=== PATIENT | female | born 1985 | race Caucasian/White ===

== ENCOUNTER 2016-10-13 15:11 | Emergency (ER) | payer MEDICAID, OTHER ==
[~2016-10-13] VITALS: Ht 162.6 cm; Wt 53.0 kg
[2016-10-13 15:21] VITALS: Ht 162.6 cm; Wt 53.0 kg
[2016-10-13] MEDS ORDERED: morphine 4 MG/ML VIAL IV STA (17:18)
[2016-10-13] MEDS ORDERED: SOD CHLORIDE 0.9% 1,000 ML IV STA (17:18)
[2016-10-13] MEDS ORDERED: ONDANSETRON 4 MG INJ IV STA (17:18)
[2016-10-13 18:02] LABS: ADD SCAN DIFF NO; BASOPHIL # 0.1 10^3/ul (0.0-0.1); BASOPHILS % 0.5 % (0.0-2.0); EOSINOPHILS # 0.3 10^3/ul (0.0-0.5); EOSINOPHILS % 3.4 % (0.0-7.0); HEMATOCRIT 40.9 % (37.0-47.0); HEMOGLOBIN 13.7 g/dl (12.0-16.0); LYMPHOCYTES # 3.2 10^3/ul (0.8-2.9); LYMPHOCYTES % 32.4 % (15.0-51.0); MEAN CORPUSCULAR HEMOGLOBIN 31.9 pg (29.0-33.0); MEAN CORPUSCULAR HGB CONC 33.5 g/dl (32.0-37.0); MEAN CORPUSCULAR VOLUME 95.3 fl (82.0-101.0); MONOCYTE # 0.6 10^3/ul (0.3-0.9); MONOCYTES % 5.9 % (0.0-11.0); NEUTROPHIL # 5.6 10^3/ul (1.6-7.5); NEUTROPHILS % 57.5 % (39.0-77.0); PLATELET COUNT 251 10^3/UL (140-415); RED BLOOD COUNT 4.29 10^6/ul (4.20-5.40); RED CELL DISTRIBUTION WIDTH 11.9 % (11.5-14.5); WHITE BLOOD COUNT 9.8 10^3/ul (4.8-10.8)
[2016-10-13 18:05] LABS: ADD UMIC YES; URINE BILIRUBIN (Dip) NEGATIVE (NEGATIVE); URINE BLOOD (Dip) TRACE (NEGATIVE); URINE COLOR LT. YELLOW (YELLOW); URINE GLUCOSE (Dip) NEGATIVE (NEGATIVE); URINE KETONES (Dip) NEGATIVE (NEGATIVE); URINE LEUKOCYTE ESTERASE (Dip) TRACE (NEGATIVE); URINE NITRITE (Dip) NEGATIVE (NEGATIVE); URINE TOTAL PROTEIN (Dip) NEGATIVE (NEGATIVE); URINE UROBILINOGEN (Dip) 0.2 E.U./dL (0.1-1.0)
[2016-10-13 18:10] LABS: ALBUMIN 4.7 g/dl (3.3-4.9)
[2016-10-13 18:11] LABS: POTASSIUM 3.8 mmol/L (3.5-5.1)
[2016-10-13 18:13] LABS: ALBUMIN/GLOBULIN RATIO 1.2; BILIRUBIN,INDIRECT 0.1 mg/dl (0-1.1); BILIRUBIN,TOTAL 0.1 mg/dl (0.2-1.3); CALCIUM 9.4 mg/dl (8.4-10.2); CREATININE 0.59 mg/dl (0.44-1.00); TOTAL PROTEIN 8.6 g/dl (6.1-8.1)
--- NOTE | 2016-10-13 18:31 | RADRPT ---
PROCEDURE: CT Abdomen and Pelvis without contrast. CLINICAL INDICATION: Abdominal pain. History of ovarian cyst. TECHNIQUE: Multiple contiguous axial CT images of the abdomen and pelvis were obtained without the administration of intravenous contrast. Coronal and sagittal reconstructions were also performed. CTDIvol (mGy): 6.52; Total Exam DLP (mGy-cm): 336.69. One or more of the following dose reduction techniques were utilized: - Automated exposure control. - Adjustment of the mA and/or kV according to patient size. - Use of iterative reconstruction technique. COMPARISON: None. FINDINGS: Limited imaging of the lower thorax is unremarkable. The liver and spleen are homogeneous in density. The gallbladder, pancreas and adrenal glands are u nremarkable. The kidneys are symmetric in size. There are no nephroureteral stones. There is no hydronephrosis o r abnormal perinephric inflammation. The abdominal aorta is normal in caliber. There is no periaortic / retroperitoneal lymphadenopathy. The stomach and small and large intestines are unremarkable aside from the presence of a moderate vo lume of formed stool throughout the colon. The appendix is normal. There are no focal inflammatory changes of the mesentery. There is no mesenteric lymphadenopathy. There is no ascites. The bladder, uterus and ovaries/adnexa are unremarkable. There is trace amount of free pelvic fluid. There is no pelvic sidewall or inguinal lymphadenopathy. Skeletal structures are unremarkable. Body wall soft tissues are unremarkable. IMPRESSION: No evidence of abdominopelvic mass, lymphadenopathy or acute inflammatory pathology. RPTAT: HLST .Ericka Burns MD, Date Time Electronically viewed and signed by .Ericka Burns MD, MD on 10/13/2016 18:30 .T/
[2016-10-13 18:33] LABS: BACTERIA,URINE FEW; SQUAMOUS EPITHELIAL CELL,UR MODERATE
--- NOTE | 2016-10-13 18:52 | ERD ---
ER Documentation Chief Complaint Date/Time DATE: 10/13/16 TIME: 18:44 Chief Complaint right lower quad ap/pelvic pain x 3 months HPI Otherwise healthy 31-year-old female presents the emergency department complaining of right lower quadrant abdominal pain which extends into her right lower extremity and radiates down her right leg. Patient states the pain is currently a sharp 8 out of 10 and worse with movement. Patient has attempted to treat her pain with ibuprofen at home with little relief. Patient states the pain began one year ago and was evaluated at that time for appendicitis including CAT scan and workup. Patient was observed for 24 hours and released home without needing surgery. Patient states that since that time she does experience the intermittent right lower quadrant pain throughout the year but today is worse than prior episodes. Patient denies any fever, vaginal bleeding , discharge, new sexual partner, dysuria, hematuria. Patient does know intermittent nausea. Patient denies any trauma to the hip or low back injury or pain. Patient denies any numbness or tingling of the right lower extremity. Patient was seen at another facility on 05 October 2016 and underwent a pelvic exam which was unremarkable. Patient presented the results to me today. ROS All systems reviewed and are negative except as per history of present illness. Medications Home Meds Active Scripts Cephalexin* (Keflex*) 500 Mg Capsule, 500 MG PO QID for 7 Days, CAP Prov:MINH COVINGTON PA-C 10/13/16 Ondansetron (Ondansetron Odt) 4 Mg Tab.rapdis, 4 MG PO Q6H Y for NAUSEA AND/OR VOMITING, #10 TAB Prov:MINH COVINGTON PA-C 10/13/16 Naproxen* (Naprosyn*) 500 Mg Tablet, 500 MG PO BID for 14 Days, TAB Prov:MINH COVINGTON PA-C 10/13/16 Hydrocodone/Acetaminophen ([place] 10-325 Tablet) 1 Each Tablet, 1 EACH PO Q6 for 7 Days, TAB Prov:MINH COVINGTON PA-C 10/13/16 PMhx/Soc Medical and Surgical Hx: pt denies Surgical Hx Hx Miscellaneous Medical Probl: Yes (OVARIAN CYST) Physical Exam Vitals Vital Signs Date Time Temp Pulse Resp B/P Pulse Ox O2 Delivery O2 Flow Rate FiO2 10/13/16 19:12 98.3 69 18 107/58 100 Room Air 10/13/16 15:21 98.5 66 18 115/79 99 Physical Exam Const: Well-developed, well-nourished, in mild distress Head: Atraumatic Eyes: Normal Conjunctiva ENT: Normal External Ears, Nose and Mouth. Neck: Full range of motion..~ No meningismus. Resp: Clear to auscultation bilaterally Cardio: Regular rate and rhythm, no murmurs Abd: Soft, non distended. Normal bowel sounds. Tenderness to palpation along the right lower quadrant. Positive McBurney's tenderness. Negative Low sign, negative rebound tenderness, no peritoneal sign Skin: No petechiae or rashes Back: Tenderness to palpation along the right piriformis region. no midline or flank tenderness. Ext: No tenderness to palpation of the right hip joint patient has full active and passive range of motion at hip and knee joints bilaterally. Pedal pulses equal and bilateral. Sensation intact to distal extremities bilaterally. No cyanosis, or edema Neur: Awake and alert Psych: Normal Mood and Affect Result Diagram: 10/13/167 10/13/161746 Results 24 hrs Laboratory Tests Test 10/13/16 17:30 10/13/16 17:47 Urine Bacteria FEW Urine Bilirubin NEGATIVE Urine Clarity SL.HAZY Urine Color LT. YELLOW Urine Glucose NEGATIVE% Urine Hemoglobin TRACE Urine Ketones NEGATIVE Urine Leukocyte Esterase TRACE Urine Microscopic RBC 5-10/HPF Urine Microscopic WBC 0-2/HPF Urine Nitrite NEGATIVE Urine Specific [facility] 1.015 Urine Squamous Epithelial Cells MODERATE Urine Total Protein NEGATIVE Urine Urobilinogen 0.2 E.U./dL Urine pH 6.0 Alanine Aminotransferase (ALT/SGPT) 21IU/L Albumin 4.7g/dl Albumin/Globulin Ratio 1.20 Alkaline Phosphatase 61IU/L Anion Gap 16 Aspartate Amino Transf (AST/SGOT) 22IU/L Basophils # 0.110^3/ul Basophils % 0.5% Blood Urea Nitrogen 14mg/dl Calcium Level 9.4mg/dl Carbon Dioxide Level 30mmol/L Chloride Level 101mmol/L Creatinine 0.59mg/dl Direct Bilirubin 0.00mg/dl Eosinophils # 0.310^3/ul Eosinophils % 3.4% Globulin 3.90g/dl Glucose Level 95mg/dl Hematocrit 40.9% Hemoglobin 13.7g/dl Indirect Bilirubin 0.1mg/dl Lipase 365U/L Lymphocytes # 3.210^3/ul Lymphocytes % 32.4% Mean Corpuscular Hemoglobin 31.9pg Mean Corpuscular Hemoglobin Concent 33.5g/dl Mean Corpuscular Volume 95.3fl Mean Platelet Volume 10.0fl Monocytes # 0.610^3/ul Monocytes % 5.9% Neutrophils # 5.610^3/ul Neutrophils % 57.5% Nucleated Red Blood Cells # 0.010^3/ul Nucleated Red Blood Cells % 0.0/100WBC Platelet Count 77365^3/UL Potassium Level 3.8mmol/L Red Blood Count 4.2910^6/ul Red Cell Distribution Width 11.9% Sodium Level 143mmol/L Total Bilirubin 0.1mg/dl Total Protein 8.6g/dl White Blood Count 9.810^3/ul Current Medications Medications (Trade) Dose Ordered Sig/Heide Route PRN Reason Start Time Stop Time Status Last Admin Dose Admin Sodium Chloride (NS) 1,000 ml @ 1,000 mls/hr Q1H STAT IV 10/13/16 17:18 10/13/16 18:17 DC 10/13/16 18:33 Morphine Sulfate (morphine) 4 mg ONCE STAT IV 10/13/16 17:18 10/13/16 17:30 DC 10/13/16 18:33 Ondansetron HCl (Zofran Inj) 4 mg ONCE STAT IV 10/13/16 17:18 10/13/16 17:30 DC 10/13/16 18:33 Procedures/MDM 31-year-old otherwise healthy female presents for intermittent right lower quadrant abdominal pain radiating down her right lower extremity intermittently 1 year. Patient denies any trauma, fever, chills or prior abdominal surgeries. Patient recently received pelvic ultrasound which was normal. Vital signs were reviewed. Patient is afebrile. Patient is not hypoxic. Abdominal exam unremarkable aside from right lower quadrant tenderness to palpation. CBC showed no evidence of systemic infection or severe anemia. CMP showed no evidence of electrolyte abnormalities, severe acidosis, alkalosis , renal failure, or liver disease. Lipase showed no evidence of acute pancreatitis. UA showed no evidence of mild infection as leukoesterase was present without hematuria. Urine test was negative. Given these findings, the patients presentation is most consistent with urinary tract infection, abdominal pain of unknown etiology as well as possible sciatica as patient exhibits tenderness near piriformis muscle distribution and has radiation of pain down the right lower extremity. I have a low suspicion for appendicitis, tubo-ovarian abscess, ovarian torsion, small bowel obstruction , diverticulitis, cholecystitis, pancreatitis, ectopic . Patient to return for repeat abdominal exam in 12 hours if right lower quadrant pain continues or worsens. I discussed with the patient the importance of following up with primary care physician for proper management of her ongoing chronic right-sided pain and necessity for referral to specialist. Patient will be provided with a short course of pain medication and antibiotics for UTI. Based on patient's history of present illness and physical examination the decision was made to discharge. The patient was re-evaluated after ED treatment and stabilizing measures, and symptoms have improved. There is no evidence of life threatening injuries or illnesses at this time. On re-examination, patient resting in no distress, stable vital signs, reports feeling better and safe for discharge with outpatient follow up with PMD in 1-2 days. Patient given return precautions. Departure Diagnosis: Primary Impression: Abdominal pain Abdominal location: right lower quadrant Qualified Code: R10.31 - Right lower quadrant abdominal pain Additional Impressions: Nausea Right leg pain MINH COVINGTON PA-C Oct 13, 2016 18:52
[2016-10-13] MEDS ORDERED: NAPR-260 PO (18:54)
[2016-10-13] MEDS ORDERED: HYDR-902 PO (18:54)
[2016-10-13] MEDS ORDERED: ONDA4TAB14 PO (18:56)
[2016-10-13] MEDS ORDERED: CEPH-443 PO (19:29)
[2016-10-13] MEDS ORDERED: KETOROLAC 30 MG INJ IV STA (19:30)
[2016-10-13 20:08] VITALS: BP 107/58; PULSE 69; RESP 18; TEMP 98.3
== END 2016-10-13 20:09 | disposition home or self-care (01) ==
LOC: FTE 15:11
DX: R10.31 Right lower quadrant pain (principal); R11.0 Nausea; M79.604 Pain in right leg
CPT/HCPCS: 36415; 74176; 80053; 81001; 83690; 85025; 96374; 96375; J1885; J2270; J2405; J7030; Z7502; 81003

== ENCOUNTER 2019-01-15 06:27 | Day surgery (SDC) | payer OTHER ==
[2019-01-15] VITALS (13 sets, daily range): BP systolic 101–113; BP diastolic 65–74; PULSE 62–86; RESP 11–19; Ht 162.6 cm; Wt 57.3 kg
[~2019-01-15] VITALS: Ht 162.6 cm; Wt 57.3 kg
[~2019-01-15 06:27] MED LIST: CEPH-443 PO; HYDR-3980 PO; NAPR-985 PO; ONDA4TAB14 PO
[2019-01-15] MEDS ORDERED: DESFLURANE 15 MIN ONE (07:00)
[2019-01-15] MEDS ORDERED: FEXO180T61 PO (09:14)
[2019-01-15] MEDS ORDERED: MIDAZOLAM 1 MG/ML 2 ML INJ ONE (11:46)
[2019-01-15] MEDS ORDERED: DEXAMETHASONE 4 MG/ML 5 ML INJ ONE (11:46)
[2019-01-15] MEDS ORDERED: CEFAZOLIN 1 GM INJ ONE (11:46)
[2019-01-15] MEDS ORDERED: ONDANSETRON 4 MG INJ ONE (11:46)
[2019-01-15] MEDS ORDERED: NEOSTIGMINE 3 MG/3 ML SYRINGE ONE (11:46)
[2019-01-15] MEDS ORDERED: FENTAnyl 50 MCG/ML VIAL ONE (11:46)
[2019-01-15] MEDS ORDERED: PROPOFOL 20 ML ONE (11:46)
[2019-01-15] MEDS ORDERED: ROCURONIUM 50 MG INJ ONE (11:46)
[2019-01-15] MEDS ORDERED: GLYCOPYRROLATE 0.4 MG INJ ONE (11:46)
[2019-01-15] MEDS ORDERED: LIDOCAINE 1%/EPI 30 ML INJ ONE (12:14)
[2019-01-15] MEDS ORDERED: COCAINE 4% 4 ML TOP ONE ×2 (12:15→13:00)
[2019-01-15] MEDS ORDERED: BACITRACIN/POLYMYXIN 28.35 GM OINT TOP ONE (12:15)
--- NOTE | 2019-01-15 12:16 | PREAC ---
Date/Time of Note Date/Time of Note DATE: 01/15/19 TIME: 12:14 Anesthesia Eval and Record Evaluation Time Pre-Procedure Interview DATE: 01/15/19 TIME: 12:14 Age 33 Sex female NPO: 8 hrs Preoperative diagnosis NASAL SEPTAL DEVIATION, HYPERTROPHIC TURBINATES Planned procedure LASER SEPTOPLASTY, TURBINOPLASTY Past Medical History Past Medical History: Includes (SEASONAL ALLERGIES) Surgery & Anesthesia Issues No known issue Meds Anticoagulation: No Beta Isaac within 24 hr: No Reason Beta Isaac not given: Pt. not on B-Isaac Reported Medications Fexofenadine Hcl* (Ashwini*) 180 Mg Tablet, 180 MG PO DAILY, #30 TAB 01/15/19 Discontinued Scripts Cephalexin* (Keflex*) 500 Mg Capsule, 500 MG PO QID for 7 Days, CAP Prov:MINH COVINGTON PA-C 10/13/16 Ondansetron (Ondansetron Odt) 4 Mg Tab.rapdis, 4 MG PO Q6H PRN for NAUSEA AND/OR VOMITING, #10 TAB Prov:MINH COVINGTON PA-C 10/13/16 Naproxen* (Naprosyn*) 500 Mg Tablet, 500 MG PO BID for 14 Days, TAB Prov:MINH COVINGTON PA-C 10/13/16 Hydrocodone/Acetaminophen ([place] 10-325 Tablet) 1 Each Tablet, 1 EACH PO Q6 for 7 Days, TAB Prov:MINH COVINGTON PA-C 10/13/16 Meds reviewed: Yes Allergies Coded Allergies: No Known Allergy (Unverified , 01/15/19) Allergies Reviewed: Yes Labs/Studies Labs Reviewed: Reviewed by anesthesiologist test: Negative Pre-procedure Exam Last vitals Vital Signs Date Temp Pulse Resp B/P (MAP) Pulse Ox O2 O2 Flow FiO2 Time Delivery Rate 01/15/19 98.1 62 16 113/70 99 Room Air 09:32 (84) Airway: Adequate mouth opening, Adequate thyromental dist Mallampati: Mallampati II Teeth: Normal Lung: Normal Heart: Normal ASA Physical Status ASA physical status: 1 Emergency: None Planned Anesthetic General/MAC: ETT Planned Pain Management Parenteral pain med Pre-operative Attestations Prior to commencing anesthesia and surgery, the patient was re-evaluated, there was verification of: *The patient's identity *The results of appropriate recent lab work and preoperative vital signs *The above evaluation not changing prior to induction *Anesthetic plan, risk benefits, alternative and complications discussed with patient/family; questions answered; patient/family understands, accepts and wishes to proceed. Kevyn Brady M.D. Jan 15, 2019 12:16
--- NOTE | 2019-01-15 12:17 | HPN ---
Date/Time of Note Date/Time of Note DATE: 01/15/19 TIME: 12:17 Interval H&P Admission Note Pt. seen H&P reviewed: No system changes BERENICE VAIL M.D. Jan 15, 2019 12:17
[2019-01-15] MEDS ORDERED: TRIMETHOBENZAMIDE 100 MG/ML VIAL IM PRN (12:30)
[2019-01-15] MEDS ORDERED: FENTAnyl 50 MCG/ML VIAL IV PRN ×3 (12:30)
[2019-01-15] MEDS ORDERED: hydrALAzine 20 MG INJ IV PRN (12:30)
[2019-01-15] MEDS ORDERED: HYDROmorphONE 1 MG/5 ML IV SYRINGE IV PRN ×3 (12:30)
[2019-01-15] MEDS ORDERED: IPRATROPIUM (NEB) 0.5 MG/2.5 ML AMP HHN PRN (12:30)
[2019-01-15] MEDS ORDERED: MEPERIDINE 25 MG INJ IV PRN (12:30)
[2019-01-15] MEDS ORDERED: ONDANSETRON 4 MG INJ IV PRN (12:30)
[2019-01-15] MEDS ORDERED: ALBUTEROL 0.083% (NEB) 2.5 MG/3 ML AMP HHN PRN (12:30)
[2019-01-15] MEDS ORDERED: EPHEDrine 25 MG/5 ML SYG IV PRN (12:30)
[2019-01-15] MEDS ORDERED: LABETALOL HCL 20MG INJ IV PRN (12:30)
[2019-01-15] MEDS ORDERED: OXYCODONE/ACETAMINOPHEN (5/325) TAB PO PRN ×2 (12:30)
[2019-01-15] MEDS ORDERED: MIDAZOLAM 1 MG/ML 2 ML INJ IV PRN (12:30)
[2019-01-15] MEDS ORDERED: DIPHENHYDRAMINE 50 MG INJ IV PRN (12:30)
--- NOTE | 2019-01-15 12:40 | HPN ---
Date/Time of Note Date/Time of Note DATE: 01/15/19 TIME: 12:40 Interval H&P Admission Note Pt. seen H&P reviewed: No system changes BERENICE VAIL M.D. Jan 15, 2019 12:40
[2019-01-15] MEDS ORDERED: LIDOCAINE 1%/EPI 30 ML INJ INJ ONE (13:00)
[2019-01-15] MEDS ORDERED: BACITRACIN/POLYMYXIN 0.9 GM OINT TOP ONE (13:36)
[2019-01-15] MEDS ORDERED: METOCLOPRAMIDE 10 MG INJ ONE (13:43)
--- NOTE | 2019-01-15 13:59 | PAC ---
Date/Time of Note Date/Time of Note DATE: 01/15/19 TIME: 13:59 Post-Anesthesia Notes Post-Anesthesia Note Last documented vital signs Vital Signs Date Temp Pulse Resp B/P (MAP) Pulse Ox O2 O2 Flow FiO2 Time Delivery Rate 01/15/19 98.1 62 16 113/70 99 Room Air 09:32 (84) Activity: WNL Respiratory function: WNL Cardiovascular function: WNL Mental status: Baseline Pain reasonably controlled: Yes Hydration appropriate: Yes Nausea/Vomiting absent: Yes Kevyn Brady M.D. Jan 15, 2019 13:59
--- NOTE | 2019-01-15 16:00 | OPR ---
DATE OF OPERATION: 01/15/2019 SURGEON: Tio Cheng MD PREOPERATIVE DIAGNOSES: 1. Septal deviation. 2. Bilateral nasal turbinate tissue hypertrophy. 3. History of chronic nasal obstruction. POSTOPERATIVE DIAGNOSES: 1. Septal deviation. 2. Bilateral nasal turbinate tissue hypertrophy. 3. History of chronic nasal obstruction. OPERATION PERFORMED: 1. A septoplasty using submucosal resection technique. 2. Bilateral laser turbinoplasty procedure using a KTP 532 nanometer laser, using a submucosal resec tion technique. ESTIMATED BLOOD LOSS: Less than 20 mL. COMPLICATIONS: No complications. SPECIMENS SENT TO LAB: Septal cartilage and bone. ANESTHETIC USED: General anesthesia with orotracheal tube intubation. The patient also required top ical cocaine 4% using 4 mL and 10 mL of 1% lidocaine with epinephrine 1:100,000. The patient also wa s given Ancef 1 gram before the case was begun. FINDINGS DURING PROCEDURE: Bilaterally enlarged, swollen turbinates with papillomatous degenerative mucosal changes. The patient was also found to have bilateral septal deviation without any evidence of nasal polyps, malignancies or tumors present. INDICATIONS: Mrs. Trista Ybarra is a 33-year-old male who has a history of chronic nasal obstruction treated with multiple nasal topical steroids, which have met with failure. The patient has been foun d on CT scan evaluation to have chronic nasal obstruction with nasal septal deviation. The patient i s currently scheduled for today's procedures which will include a septoplasty and bilateral laser tur binoplasty procedure to help alleviate her chronic nasal obstruction. Risks, benefits, and alternati ves have been explained thoroughly to the patient. They include infections, bleeding, failure of pro cedure, as well as possible septal perforation. She also understands the risks of general and local anesthetic agents and their reactions that will be used during procedure. She has signed a consent o nce her questions were answered. DESCRIPTION OF PROCEDURE: The patient was taken to the operating room, placed on the surgical table in supine position, made comfortable by the anesthesiologist, . The patient had EKG, satura tion monitoring and blood pressure cuff applied. The patient was then given mask inhalation agents a nd placed asleep gently. The patient had a previously started IV, which was infusing well, was given IV sedation. At this point, the patient was successfully orotracheally intubated with orotracheal c uffed tube without any complications. Tube was taped to the left corner of the mouth. Eyes were the n taped for protection. At this point, the patient was then found to have normal vital signs as the patient was draped out in usual sterile fashion using a split sheet. At this point, wet towels were placed around the nose and the oral cavity in preparation for laser use. At this point, the intranas al cavity was evaluated and found to have swollen inferior turbinates, which were "boggy" in their ap pearance. The septum was also deviated to the left anteriorly and to the right posteriorly. The inf erior turbinates were then injected using a 25-gauge needle using 1% lidocaine with epinephrine 1:100,000 solution. Cottonoids soaked with cocaine 4% was then applied to the intranasal cavity as well. At this point, all personnel in the operating room were asked to place safety goggles for thei r protection as the KTP 532 nanometer laser was then made ready at 8 ngo continuous power. The [facility] hand-held laser attachment was then threaded with the laser wire. A foot pedal was used to act ivate the laser. At this point, the cottonoids were removed from the intranasal cavity as the left i nferior turbinate was noted to be swollen and using a stabbing technique in a posterior direction, th e inferior turbinate on the left side was reduced in the submucosal space. The smoke was evacuated w ith the evacuator as the Berg suction was used to remove blood in the nasal cavity. After the lef t side was reduced in size, this gave greater patency to the left nasal cavity. The right side was d one in similar fashion right inferior turbinate. The nasal speculum was then used to outfractu re the inferior turbinate short medial wall of the maxillary sinus giving even greater patency. The middle turbinates were also reduced in size in the submucosal space as well. This ended the laser po rtion of the surgical procedure. The septoplasty procedure was started by making a hemitransfixion i ncision on the left side of the nose with a #15 Bard-Sandeep sharp stainless steel blade. This incisi on was carried down to the perichondrium which was elevated with a [place] elevator, creating a mucope riosteal flap. The hemitransfixion incision was then completed to the right side with the same #15 B jackson-Sandeep sharp stainless steel blade. Without tearing the right side of the mucoperichondrial memb kellen, the [place] elevator was advanced to elevate the right side of the flap. This skeletonized the septal cartilage, which was removed with the Jabier forceps. At this point, the nasal septum was noted to come back towards the midline as the hemitransfixion incision was closed with 4-0 Vic[address] sut ure in simple interrupted fashion. Plication suture was then applied to the septum to prevent then h ematoma formation and to keep the septum in the midline. At this point, a Berg suction was used t o suction blood from the nasal cavity and the nasopharynx in preparation for extubation. Bacitracin ointment was then placed in the nose as a packing and a mustache dressing placed beneath the nose to catch any drainage. This ended the procedure. Sponge count, instrument count was correct x3. There were no complications during the procedure. Dictated By: TIO MONTENEGRO/ADRIA Conf#: [id number] DID#: [id number]
== END 2019-01-15 15:49 | disposition home or self-care (01) ==
LOC: SDS 06:27
PROVIDERS: ATTEND Otolaryngology Otolaryngology/Facial Plastic Surgery
DX: J34.2 Deviated nasal septum (principal); J34.3 Hypertrophy of nasal turbinates; J34.89 Other specified disorders of nose and nasal sinuses
CPT/HCPCS: 30140; 30520; 88300; J0690; J1100; J2250; J2405; J2710; J3010; Z7512; Z7610; J2765